=== PATIENT | female | born 2000 | race American Indian/Alaskan Native ===

== ENCOUNTER 2019-03-03 00:55 | Emergency (ER) | payer SELFPAY ==
[2019-03-03 01:00] VITALS: BP 116/72
--- NOTE | 2019-03-03 02:46 | Emergency Department Report ---
ED ENT HPI - General Chief complaint: Earache Stated complaint: CANT HEAR OUT OF LT EAR, DISCHARGE Time Seen by Provider: 03/03/19 02:34 Source: patient Mode of arrival: Ambulatory Limitations: No Limitations - History of Present Illness Initial comments: Patient is a 18-year-old -[place] female who presents for left ear pain 1 week has history of recurrent AOM placed nocturnal fever no cough no sore throat, patient was secondary concern for dysuria frequency and urgency last menstrual cycle 2 weeks ago complaint: ear pain Onset/Timin -: week(s) Location: R ear, L ear Severity: moderate Severity scale (0 -10): 5 Quality: aching Consistency: constant Improves with: none Worsens with: movement Associated Symptoms: fever, tinnitus - Related Data Previous Rx's Medication Instructions Recorded Last Taken Type Amoxicillin [Amoxicillin TAB] 875 mg PO BID 7 Days #14 tablet 12/10/18 Unknown Rx Neomycin/Polymyxin B/Hydrocort 4 drops OT QID 7 Days solution 12/10/18 Unknown Rx [Cwbaklfy-Urpsiojti-Wi Ear Soln] Polymyxin B Sulf/Trimethoprim 2 drops OD QID 7 Days drops 12/10/18 Unknown Rx [Polytrim Eye Drops] Amoxicillin/Potassium Clav 1 each PO BID 10 Days #20 tablet 03/03/19 Unknown Rx [Augmentin 875-125 Tablet] Ibuprofen [Motrin 800 MG tab] 800 mg PO Q8HR PRN #30 tablet 03/03/19 Unknown Rx Allergies Allergy/AdvReac Type Severity Reaction Status Date / Time No Known Allergies Allergy Verified 12/10/18 18:25 ED Dental HPI - General Chief complaint: Earache Stated complaint: CANT HEAR OUT OF LT EAR, DISCHARGE Time Seen by Provider: 03/03/19 02:34 Source: patient Mode of arrival: Ambulatory Limitations: No Limitations - Related Data Previous Rx's Medication Instructions Recorded Last Taken Type Amoxicillin [Amoxicillin TAB] 875 mg PO BID 7 Days #14 tablet 12/10/18 Unknown Rx Neomycin/Polymyxin B/Hydrocort 4 drops OT QID 7 Days solution 12/10/18 Unknown Rx [Vfqbkkug-Qbvjwgwcy-Yo Ear Soln] Polymyxin B Sulf/Trimethoprim 2 drops OD QID 7 Days drops 12/10/18 Unknown Rx [Polytrim Eye Drops] Amoxicillin/Potassium Clav 1 each PO BID 10 Days #20 tablet 03/03/19 Unknown Rx [Augmentin 875-125 Tablet] Ibuprofen [Motrin 800 MG tab] 800 mg PO Q8HR PRN #30 tablet 03/03/19 Unknown Rx Allergies Allergy/AdvReac Type Severity Reaction Status Date / Time No Known Allergies Allergy Verified 12/10/18 18:25 ED Review of Systems ROS: Stated complaint: CANT HEAR OUT OF LT EAR, DISCHARGE Other details as noted in HPI Constitutional: fever. denies: chills Eyes: denies: eye pain, eye discharge, vision change ENT: ear pain Respiratory: denies: cough, shortness of breath, wheezing Cardiovascular: denies: chest pain, palpitations Endocrine: no symptoms reported Gastrointestinal: denies: abdominal pain, nausea, vomiting, diarrhea Genitourinary: denies: urgency, dysuria, discharge Musculoskeletal: denies: back pain, joint swelling, arthralgia Skin: denies: rash, lesions Neurological: denies: headache, weakness, paresthesias Psychiatric: denies: anxiety, depression Hematological/Lymphatic: denies: easy bleeding, easy bruising ED Past Medical Hx - Past Medical History Previous Medical History?: No - Surgical History Past Surgical History?: No - Social History Smoking Status: Never Smoker - Medications Home Medications: Home Medications Medication Instructions Recorded Confirmed Last Taken Type Amoxicillin [Amoxicillin TAB] 875 mg PO BID 7 Days #14 tablet 12/10/18 Unknown Rx Neomycin/Polymyxin B/Hydrocort 4 drops OT QID 7 Days solution 12/10/18 Unknown Rx [Fsinxusi-Tyfhjpiph-Dl Ear Soln] Polymyxin B Sulf/Trimethoprim 2 drops OD QID 7 Days drops 12/10/18 Unknown Rx [Polytrim Eye Drops] Amoxicillin/Potassium Clav 1 each PO BID 10 Days #20 tablet 03/03/19 Unknown Rx [Augmentin 875-125 Tablet] Ibuprofen [Motrin 800 MG tab] 800 mg PO Q8HR PRN #30 tablet 03/03/19 Unknown Rx ED Physical Exam - General Limitations: No Limitations General appearance: alert, in no apparent distress - Head Head exam: Present: atraumatic, normocephalic - Eye Eye exam: Present: normal appearance, PERRL, EOMI Pupils: Present: normal accommodation - ENT ENT exam: Present: mucous membranes moist - Expanded ENT Exam Expanded Ear exam: Present: normal external inspection TM/Canal exam: Erythema: Right TM, Left TM, Canal Tenderness: Right TM, Left TM Mouth exam: Absent: trismus Teeth exam: Present: normal inspection Throat exam: Positive: normal inspection - Neck Neck exam: Present: normal inspection. Absent: tenderness, meningismus, full ROM, lymphadenopathy, thyromegaly - Respiratory Respiratory exam: Present: normal lung sounds bilaterally. Absent: respiratory distress, wheezes, stridor, chest wall tenderness - Cardiovascular Cardiovascular Exam: Present: regular rate, normal rhythm, normal heart sounds. Absent: systolic murmur, diastolic murmur, rubs, gallop - GI/Abdominal GI/Abdominal exam: Present: soft, normal bowel sounds. Absent: distended, tenderness, guarding, rebound, rigid, bruit, hernia - Rectal Rectal exam: Present: deferred - External exam: Present: other (exam deferred per patient ) - Extremities Exam Extremities exam: Present: normal inspection, full ROM - Back Exam Back exam: Present: normal inspection, full ROM. Absent: tenderness, CVA tenderness (R), CVA tenderness (L), muscle spasm, rash noted - Neurological Exam Neurological exam: Present: alert, oriented X3, CN II-XII intact, normal gait - Psychiatric Psychiatric exam: Present: normal affect, normal mood - Skin Skin exam: Present: warm, dry, intact, normal color. Absent: rash ED Course Vital Signs 03/03/19 00:57 Temperature 98.3 F Pulse Rate 62 Respiratory 18 Rate Blood Pressure 116/72 O2 Sat by Pulse 100 Oximetry ED Medical Decision Making - Lab Data Lab Results 03/03/19 Range/Units 03:37 Urine Color Straw (Yellow) Urine Turbidity Clear (Clear) Urine pH 7.0 (5.0-7.0) Ur Specific [place] 1.006 (1.003-1.030) Urine Protein <15 mg/dl (Negative) mg/dL Urine Glucose (UA) Neg (Negative) mg/dL Urine Ketones Neg (Negative) mg/dL Urine Blood Mod (Negative) Urine Nitrite Neg (Negative) Urine Bilirubin Neg (Negative) Urine Urobilinogen < 2.0 (<2.0) mg/dL Ur Leukocyte Esterase Tr (Negative) Urine WBC (Auto) 1.0 (0.0-6.0) /HPF Urine RBC (Auto) 2.0 (0.0-6.0) /HPF U Epithel Cells (Auto) 1.0 (0-13.0) /HPF Urine HCG, Qual Negative (Negative) - Medical Decision Making paln tx for AOM, augmentin, ibuprofen, pt will follow up with pcp, in 2-3 days. pt verbalized agreement and understanding with discharge plan. Critical care attestation.: If time is entered above; I have spent that time in minutes in the direct care of this critically ill patient, excluding procedure time. ED Disposition Clinical Impression: AOM (acute otitis media) Qualifiers: Otitis media type: serous Laterality: bilateral Recurrence: recurrent Qualified Code(s): H65.06 - Acute serous otitis media, recurrent, bilateral Disposition: TO HOME OR SELFCARE Is pt being admited?: No Does the pt Need Aspirin: No Condition: Stable Instructions: Otitis Media (ED) Prescriptions: Amoxicillin/Potassium Clav [Augmentin 875-125 Tablet] 1 each PO BID 10 Days #20 tablet Ibuprofen [Motrin 800 MG tab] 800 mg PO Q8HR PRN #30 tablet PRN Reason: pain fever Referrals: MODESTO GARNER MD [Primary Care Provider] - 3-5 Days Forms: Work/School Release Form(ED) Time of Disposition: 04:46
[2019-03-03 04:15] LABS: Bilirubin,Urine NEG (Negative); Blood,Urine MOD (Negative); Color,Urine Straw (Yellow); Protein,Urine <15 mg/dL mg/dL (Negative); Urobilinogen,Urine < 2.0 mg/dL (<2.0)
[2019-03-03 04:17] LABS: HCG Qualitative,Urine Negative (Negative)
== END 2019-03-03 05:00 | disposition home or self-care (01) ==
LOC: ED 00:55
DX: H65.06 Acute serous otitis media, recurrent, bilateral (principal); R30.0 Dysuria; Z79.1 Long term (current) use of non-steroidal anti-inflammatories (NSAID); Z79.899 Other long term (current) drug therapy
CPT/HCPCS: 81001; 81025; 99283

== ENCOUNTER 2019-09-13 09:40 | Emergency (ER) | payer SELFPAY ==
[2019-09-13 10:28] LABS: Mucus,Urine 2+ /HPF
[2019-09-13 10:43] LABS: RBC,Urine > 182.0 /HPF (0.0-6.0)
[2019-09-13 10:44] LABS: Bilirubin,Urine Negative (Negative); Blood,Urine Large (Negative); Color,Urine Straw (Yellow); WBC,Urine > 182.0 /HPF (0.0-6.0)
--- NOTE | 2019-09-13 14:07 | Emergency Department Report ---
{null, ED Female HPI - General Chief complaint: Urogenital-Female Stated complaint: PAIN WITH URINATION Time Seen by Provider: 09/13/19 12:47 Source: patient Mode of arrival: Ambulatory Limitations: No Limitations - History of Present Illness Initial comments: 19-year-old female presents to the ER today complaining of dysuria, and urinary frequency.. Onset of symptoms a couple days ago. She denies any pneumaturia, vaginal discharge, abdominal pain no back pain. She states that she is on Implanon, so her menstrual cycles are abnormal. The last menstrual cycle that she recalls was back in May 2019. She states that she has had UTIs in the past but not frequently. She states her last UTI was sometime last year. She reports no other symptoms at this time. MD Complaint: dysuria, other (urinary frequency) -: days(s) (2) - Related Data Previous Rx's Medication Instructions Recorded Last Taken Type Amoxicillin [Amoxicillin TAB] 875 mg PO BID 7 Days #14 tablet 12/10/18 Unknown Rx Neomycin/Polymyxin B/Hydrocort 4 drops OT QID 7 Days solution 12/10/18 Unknown Rx [Wvxhzefc-Cbowstydl-Il Ear Soln] Polymyxin B Sulf/Trimethoprim 2 drops OD QID 7 Days drops 12/10/18 Unknown Rx [Polytrim Eye Drops] Amoxicillin/Potassium Clav 1 each PO BID 10 Days #20 tablet 03/03/19 Unknown Rx [Augmentin 875-125 Tablet] Ibuprofen [Motrin 800 MG tab] 800 mg PO Q8HR PRN #30 tablet 03/03/19 Unknown Rx Sulfamethoxazole/Trimethoprim 1 each PO BID #14 tablet 09/13/19 Unknown Rx [Bactrim DS TAB] Allergies Allergy/AdvReac Type Severity Reaction Status Date / Time No Known Allergies Allergy Verified 12/10/18 18:25 ED Review of Systems ROS: Stated complaint: PAIN WITH URINATION Other details as noted in HPI Constitutional: denies: chills, fever Gastrointestinal: denies: abdominal pain, nausea, vomiting Genitourinary: dysuria, frequency. denies: hematuria, discharge, abnormal menses Musculoskeletal: denies: back pain Neurological: denies: weakness ED Past Medical Hx - Past Medical History Previous Medical History?: No - Surgical History Past Surgical History?: No - Social History Smoking Status: Never Smoker Substance Use Type: None - Medications Home Medications: Home Medications Medication Instructions Recorded Confirmed Last Taken Type Amoxicillin [Amoxicillin TAB] 875 mg PO BID 7 Days #14 tablet 12/10/18 Unknown Rx Neomycin/Polymyxin B/Hydrocort 4 drops OT QID 7 Days solution 12/10/18 Unknown Rx [Hvjzqnph-Xossrazar-Va Ear Soln] Polymyxin B Sulf/Trimethoprim 2 drops OD QID 7 Days drops 12/10/18 Unknown Rx [Polytrim Eye Drops] Amoxicillin/Potassium Clav 1 each PO BID 10 Days #20 tablet 03/03/19 Unknown Rx [Augmentin 875-125 Tablet] Ibuprofen [Motrin 800 MG tab] 800 mg PO Q8HR PRN #30 tablet 03/03/19 Unknown Rx Sulfamethoxazole/Trimethoprim 1 each PO BID #14 tablet 09/13/19 Unknown Rx [Bactrim DS TAB] ED Physical Exam - General Limitations: No Limitations General appearance: alert, in no apparent distress - Head Head exam: Present: atraumatic, normocephalic - Eye Eye exam: Present: normal appearance, PERRL, EOMI Pupils: Present: normal accommodation - ENT ENT exam: Present: normal exam, normal orophraynx, mucous membranes moist - Respiratory Respiratory exam: Present: normal lung sounds bilaterally - Cardiovascular Cardiovascular Exam: Present: regular rate, normal rhythm, normal heart sounds - GI/Abdominal GI/Abdominal exam: Present: soft. Absent: distended, tenderness - Neurological Exam Neurological exam: Present: alert, oriented X3, CN II-XII intact, normal gait - Psychiatric Psychiatric exam: Present: normal affect, normal mood - Skin Skin exam: Present: intact ED Course Vital Signs 09/13/19 09:48 Temperature 98.8 F Pulse Rate 97 H Respiratory 16 Rate Blood Pressure 105/58 O2 Sat by Pulse 99 Oximetry Critical care attestation.: If time is entered above; I have spent that time in minutes in the direct care of this critically ill patient, excluding procedure time. ED Disposition Clinical Impression: UTI (urinary tract infection) Disposition: TO HOME OR SELFCARE Is pt being admited?: No Does the pt Need Aspirin: No Condition: Stable Instructions: Urinary Tract Infection in Women (ED) Prescriptions: Sulfamethoxazole/Trimethoprim [Bactrim DS TAB] 1 each PO BID #14 tablet Referrals: PRIMARY CARE, [Primary Care Provider] - 3-5 Days Time of Disposition: 14:18 }
[2019-09-13 14:33] LABS: HCG Qualitative,Urine Negative (Negative)
[2019-09-13 15:05] VITALS: BP 124/66
== END 2019-09-13 15:04 | disposition home or self-care (01) ==
LOC: ED 09:40
DX: N39.0 Urinary tract infection, site not specified (principal); Z79.1 Long term (current) use of non-steroidal anti-inflammatories (NSAID); Z79.899 Other long term (current) drug therapy
CPT/HCPCS: 81001; 81025; 82962; 87076; 87086; 87186; 99283

== ENCOUNTER 2020-10-17 11:58 | Emergency (ER) | payer SELFPAY ==
--- NOTE | 2020-10-17 12:36 | Event Note ---
ED Screening Note Date of service: 10/17/20 Time: 12:36 ED Screening Note: Complains of vaginal bumps This initial assessment/diagnostic orders/clinical plan/treatment(s) is/are subject to change based on patients health status, clinical progression and re- assessment by fellow clinical providers in the ED. Further treatment and workup at subsequent clinical providers discretion. Patient/guardian urged not to elope from the ED as their condition may be serious if not clinically assessed and managed. Initial orders include: Pelvic exam in ACC UA
[2020-10-17 13:15] LABS: Bilirubin,Urine NEG (Negative); Blood,Urine NEG (Negative); Color,Urine Yellow (Yellow); Mucus,Urine 3+ /HPF; Protein,Urine <15 mg/dL mg/dL (Negative)
[2020-10-17 13:21] LABS: HCG Qualitative,Urine Negative (Negative)
--- NOTE | 2020-10-17 14:00 | Emergency Department Report ---
ED Female HPI - General Chief complaint: Urogenital-Female Stated complaint: POSS STD/SMALL BUMPS IN VAGINAL AREA Time Seen by Provider: 10/17/20 12:48 Source: patient Mode of arrival: Ambulatory Limitations: No Limitations - History of Present Illness Initial comments: This is a pleasant 20-year-old female presents to the emergency department with chief complaint of itchy bumps on the right inner labia majora over the past 2 days. Patient reports she has not had any recent unprotected sexual encounters. She thinks it may be due to shaving. She denies any associated fever, chills, night sweats, headache, dizziness, blurry vision, nausea, vomiting, diarrhea, chest pain or shortness of breath, weakness or any other associated symptoms. - Related Data Previous Rx's Medication Instructions Recorded Last Taken Type Amoxicillin [Amoxicillin TAB] 875 mg PO BID 7 Days #14 tablet 12/10/18 Unknown Rx Neomycin/Polymyxin B/Hydrocort 4 drops OT QID 7 Days solution 12/10/18 Unknown Rx [Dnokqxfm-Tcupvsrwg-Rz Ear Soln] Polymyxin B Sulf/Trimethoprim 2 drops OD QID 7 Days drops 12/10/18 Unknown Rx [Polytrim Eye Drops] Amoxicillin/Potassium Clav 1 each PO BID 10 Days #20 tablet 03/03/19 Unknown Rx [Augmentin 875-125 Tablet] Ibuprofen [Motrin 800 MG tab] 800 mg PO Q8HR PRN #30 tablet 03/03/19 Unknown Rx Sulfamethoxazole/Trimethoprim 1 each PO BID #14 tablet 09/13/19 Unknown Rx [Bactrim DS TAB] Doxycycline Hyclate [Doxycycline 100 mg PO Q12HR #20 tab 12/07/19 Unknown Rx Hyclate TAB] Fluconazole (Nf) [Diflucan TAB] 150 mg PO ONCE #1 tablet 12/07/19 Unknown Rx Ibuprofen [Motrin] 600 mg PO Q8H PRN #20 tablet 12/07/19 Unknown Rx metroNIDAZOLE [Flagyl] 500 mg PO Q12HR #14 tab 12/07/19 Unknown Rx Valacyclovir HCl [Valtrex] 1,000 mg PO BID #20 tablet 10/17/20 Unknown Rx Allergies Allergy/AdvReac Type Severity Reaction Status Date / Time No Known Allergies Allergy Verified 10/17/20 12:22 ED Review of Systems ROS: Stated complaint: POSS STD/SMALL BUMPS IN VAGINAL AREA Other details as noted in HPI Comment: All other systems reviewed and negative Constitutional: denies: chills, fever Eyes: denies: eye pain, eye discharge, vision change ENT: denies: ear pain, throat pain Respiratory: denies: cough, shortness of breath, wheezing Cardiovascular: denies: chest pain, palpitations Endocrine: no symptoms reported Gastrointestinal: denies: abdominal pain, nausea, diarrhea Genitourinary: denies: urgency, dysuria, discharge Musculoskeletal: denies: back pain, joint swelling, arthralgia Skin: as per HPI, rash. denies: lesions Neurological: denies: headache, weakness, paresthesias Psychiatric: denies: anxiety, depression Hematological/Lymphatic: denies: easy bleeding, easy bruising ED Past Medical Hx - Past Medical History Hx Asthma: Yes - Surgical History Past Surgical History?: No - Family History Family history: no significant - Social History Smoking Status: Never Smoker Substance Use Type: None - Medications Home Medications: Home Medications Medication Instructions Recorded Confirmed Last Taken Type Amoxicillin [Amoxicillin TAB] 875 mg PO BID 7 Days #14 tablet 12/10/18 Unknown Rx Neomycin/Polymyxin B/Hydrocort 4 drops OT QID 7 Days solution 12/10/18 Unknown Rx [Bezlvxvu-Jtmfsmkgg-Tk Ear Soln] Polymyxin B Sulf/Trimethoprim 2 drops OD QID 7 Days drops 12/10/18 Unknown Rx [Polytrim Eye Drops] Amoxicillin/Potassium Clav 1 each PO BID 10 Days #20 tablet 03/03/19 Unknown Rx [Augmentin 875-125 Tablet] Ibuprofen [Motrin 800 MG tab] 800 mg PO Q8HR PRN #30 tablet 03/03/19 Unknown Rx Sulfamethoxazole/Trimethoprim 1 each PO BID #14 tablet 09/13/19 Unknown Rx [Bactrim DS TAB] Doxycycline Hyclate [Doxycycline 100 mg PO Q12HR #20 tab 12/07/19 Unknown Rx Hyclate TAB] Fluconazole (Nf) [Diflucan TAB] 150 mg PO ONCE #1 tablet 12/07/19 Unknown Rx Ibuprofen [Motrin] 600 mg PO Q8H PRN #20 tablet 12/07/19 Unknown Rx metroNIDAZOLE [Flagyl] 500 mg PO Q12HR #14 tab 12/07/19 Unknown Rx Valacyclovir HCl [Valtrex] 1,000 mg PO BID #20 tablet 10/17/20 Unknown Rx ED Physical Exam - General Limitations: No Limitations General appearance: alert, in no apparent distress - Head Head exam: Present: atraumatic, normocephalic - Eye Eye exam: Present: normal appearance, PERRL, EOMI Pupils: Present: normal accommodation - ENT ENT exam: Present: normal exam, normal orophraynx, mucous membranes moist - Neck Neck exam: Present: normal inspection, full ROM. Absent: tenderness, meningismus - Respiratory Respiratory exam: Present: normal lung sounds bilaterally. Absent: respiratory distress, wheezes, rales, rhonchi, stridor - Cardiovascular Cardiovascular Exam: Present: regular rate, normal rhythm, normal heart sounds. Absent: systolic murmur, diastolic murmur, rubs, gallop - GI/Abdominal GI/Abdominal exam: Present: soft, normal bowel sounds. Absent: distended, tenderness, guarding, rebound, rigid - Rectal Rectal exam: Present: deferred - External exam: Present: lesions (There were multiple grouped ulcerations to the right inner labia majora. No vesicles. No tenderness to palpation. No surrounding erythema or edema.), other (Chaperoned by GABO Flores) - Extremities Exam Extremities exam: Present: normal inspection, full ROM, normal capillary refill. Absent: tenderness, calf tenderness - Back Exam Back exam: Present: normal inspection, full ROM. Absent: tenderness, CVA tenderness (R), CVA tenderness (L) - Neurological Exam Neurological exam: Present: alert, oriented X3, normal gait - Psychiatric Psychiatric exam: Present: normal affect, normal mood - Skin Skin exam: Present: warm, dry, intact, normal color. Absent: rash ED Course Vital Signs 10/17/20 12:25 Temperature 98.5 F Pulse Rate 66 Respiratory 20 Rate Blood Pressure 111/74 O2 Sat by Pulse 100 Oximetry - Reevaluation(s) Reevaluation #1: 10/17/20 13:57 Patient nontoxic in no acute distress. Lesions were highly concerning of a herpetic infection and recommended Valtrex and health department follow-up. She states she is not concerned about a sexual transmitted infection and highly recommend she go to the health department be checked for all other STDs including gonorrhea, chlamydia, trichomonas, herpes simplex, hepatitis, HIV, syphilis and any other possible STD exposures. Also will give [facility] follow-up. Recommend she return to the [facility] immediately develops any change or worsening symptoms. She verbalized understanding the diagnosis, treatment plan and follow-up instructions and all of her questions were answered. ED Medical Decision Making - Differential Diagnosis Herpes simplex, cellulitis, allergic contact dermatitis, folliculitis Critical care attestation.: If time is entered above; I have spent that time in minutes in the direct care of this critically ill patient, excluding procedure time. ED Disposition Clinical Impression: Lesion of labia Disposition: TO HOME OR SELFCARE Is pt being admited?: No Condition: Stable Instructions: Genital Herpes Prescriptions: Valacyclovir HCl [Valtrex] 1,000 mg PO BID #20 tablet Referrals: PRIMARY CAREMD [Primary Care Provider] - 3-5 Days [facility] [Outside] - 3-5 Days BRIT CARRILLO MD [Staff Physician] - 3-5 Days Forms: Work/School Release Form(ED) Time of Disposition: 13:59
[2020-10-17 14:17] VITALS: BP 118/84
== END 2020-10-17 14:17 | disposition home or self-care (01) ==
LOC: ED 11:58
DX: N90.89 Other specified noninflammatory disorders of vulva and perineum (principal); J45.909 Unspecified asthma, uncomplicated; Z79.899 Other long term (current) drug therapy
CPT/HCPCS: 81001; 81025; 99283

== ENCOUNTER 2020-12-18 11:20 | Emergency (ER) | payer SELFPAY ==
--- NOTE | 2020-12-18 12:12 | Emergency Department Report ---
Minor Respiratory - HPI Stated Complaint: THROAT PAINS Time Seen by Provider: 12/18/20 12:08 Duration: 3 Days Pain Location: Throat, Nose Severity: mild Minor Respiratory: Yes Sore Throat, Yes Able to Tolerate Fluids, Yes Cough, Yes Sick Contacts (family members with similar symptoms), No Rhinorrhea, No Ear Pain, No Hemoptysis, No Chest Pain, No Shortness of Breath, No Fever Other History: This 20-year-old healthy looking female in no acute distress who presents to ED complaining of throat nasal congestion and intermittent coughing for the past 3 days. Patient is also here with her 8-year-old niece with similar symptoms. She denies fever/chills/nausea vomiting ED Review of Systems ROS: Stated complaint: THROAT PAINS Other details as noted in HPI Comment: All other systems reviewed and negative ED Past Medical Hx - Past Medical History Hx Asthma: Yes - Social History Smoking Status: Never Smoker Substance Use Type: None - Medications Home Medications: Home Medications Medication Instructions Recorded Confirmed Last Taken Type Amoxicillin [Amoxicillin TAB] 875 mg PO BID 7 Days #14 tablet 12/10/18 Unknown Rx Neomycin/Polymyxin B/Hydrocort 4 drops OT QID 7 Days solution 12/10/18 Unknown Rx [Yhadwnbs-Kktfcbpba-Ty Ear Soln] Polymyxin B Sulf/Trimethoprim 2 drops OD QID 7 Days drops 12/10/18 Unknown Rx [Polytrim Eye Drops] Ibuprofen [Motrin 800 MG tab] 800 mg PO Q8HR PRN #30 tablet 03/03/19 Unknown Rx Sulfamethoxazole/Trimethoprim 1 each PO BID #14 tablet 09/13/19 Unknown Rx [Bactrim DS TAB] Doxycycline Hyclate [Doxycycline 100 mg PO Q12HR #20 tab 12/07/19 Unknown Rx Hyclate TAB] Fluconazole (Nf) [Diflucan TAB] 150 mg PO ONCE #1 tablet 12/07/19 Unknown Rx metroNIDAZOLE [Flagyl] 500 mg PO Q12HR #14 tab 12/07/19 Unknown Rx Valacyclovir HCl [Valtrex] 1,000 mg PO BID #20 tablet 10/17/20 Unknown Rx Amoxicillin/Potassium Clav 1 each PO BID 10 Days #20 tablet 12/18/20 Unknown Rx [Augmentin 875-125 Tablet] Ibuprofen [Motrin 600 MG tab] 600 mg PO Q8H PRN #20 tablet 12/18/20 Unknown Rx Minor Respiratory Exam - Exam General: Vital signs noted. No distress. Alert and acting appropriately. HEENT: Yes Moist Mucous Membranes, No Pharyngeal Erythema, No Pharyngeal Exudates, No Rhinorrhea, No Conjuctival Injection, No Frontal Tenderness, No Maxillary Tenderness Ear: Neither TM Bulge, Neither TM Erythema, Neither EAC Pain, Neither EAC Discharge Neck: Yes Supple, No Adenopathy Lungs: Yes Good Air Exchange, No Wheezes, No Ronchi, No Stridor, No Cough, No Labored Respirations, No Retractions, No Use of Accessory Muscles, No Other Abnormal Lung Sounds Heart: Yes Regular, No Murmur Abdomen: Yes Normal Bowel Sounds, No Tenderness, No Peritoneal Signs Skin: No Rash, No Edema Neurologic: Alert and oriented, no deficits. Musculoskeletal: Unremarkable. ED Medical Decision Making - Medical Decision Making 20-year-old male presents with upper respiratory symptoms. fever during the ED stay. Patient was in no respiratory distress. ED stay. Speaking in clear sentences Discussed with symptomatic relief with [id number] medications. Discussed continue Tylenol and Motrin as needed for fever and pain. Discussed increase fluids and diet intake. Discussed rest much needed. Discussed daily vitamin C for immune booster. Discussed follow-up with primary care physician in 3-5 days. Patient verbally states she understands and will comply the following instructions and follow-up Vital signs stable. Patient is in no acute distress Critical care attestation.: If time is entered above; I have spent that time in minutes in the direct care of this critically ill patient, excluding procedure time. ED Disposition Clinical Impression: URI (upper respiratory infection) Disposition: TO HOME OR SELFCARE Is pt being admited?: No Does the pt Need Aspirin: No Condition: Stable Instructions: Cool Mist Vaporizer, Viral Respiratory Infection, [id number] Additional Instructions: Make sure to follow up with the primary care physician as discussed. Take all your medications as you've been prescribed. If you have any worsening symptoms or develop new symptoms please return to ED immediately. Prescriptions: Amoxicillin/Potassium Clav [Augmentin 875-125 Tablet] 1 each PO BID 10 Days #20 tablet Ibuprofen [Motrin 600 MG tab] 600 mg PO Q8H PRN #20 tablet PRN Reason: Pain Referrals: PRIMARY CARE, [Primary Care Provider] - 3-5 Days [facility] [Outside] - 3-5 Days [facility] [Outside] - 3-5 Days Forms: Work/School Release Form(ED) Time of Disposition: 12:56
== END 2020-12-18 15:32 | disposition home or self-care (01) ==
LOC: ED 11:20
DX: J06.9 Acute upper respiratory infection, unspecified (principal); J45.909 Unspecified asthma, uncomplicated; Z79.899 Other long term (current) drug therapy
CPT/HCPCS: 99281